=== PATIENT | male | born 1940 | race Caucasian/White ===

== ENCOUNTER 2016-10-04 17:49 | Emergency (ER) | payer MEDICARE, BC ==
--- NOTE | ~2016-10-04 | CR2 ---
[facility]. [facility] A Service of [facility] & [facility] RADIOLOGY TEXT RESULTS PATIENT: DORIS SIMONS LOCATION: SED : 40 UNIT #: [id number] AGE: [address]: Frank Rubin MD SEX: M ORDER DR: [id number] [place] [id number] MR#: [id number] Acc #: [id number] NAME: DORIS SIMONS : 1940 SEX: M STUDY DATE/TIME: 10/04/2016 17:26 UNIT: SED ROOM: STUDY DESCRIPTION: CR Abdomen Acute Series Attending Physician: Frank Rubin M.D. Ordering Physician: Frank Rubin M.D. Primary Care Physician: Oswald Suarez M.D. MEDICAL IMAGING REPORT This report is preliminary unless electronic signature is present. EXAM Acute abdominal series INDICATION Abdominal pain for the past 2 weeks. Generalized abdominal pain. PROCEDURE Frontal view of the chest, supine and upright views of the abdomen. COMPARISON None. FINDINGS Upper limits of normal heart size. No dense consolidation. No free air. Large colonic stool burden. Nonobstructed bowel gas pattern. IMPRESSION 1. Large colonic stool burden. 2. Nonobstructive pattern. Dictated by... Sunny Hawthorne M.D. THIS IS AN ELECTRONICALLY VERIFIED REPORT Sunny Hawthorne M.D. at 10/07/2016 7:22 AM MENDOZA/[email or web address] TD: 10/05/2016 09:37 JOB #: [id number] MEDICAL IMAGING REPORT
[~2016-10-04 17:49] MED LIST: AMLODIPINE BESY10 MG PO; ARTHRITIS PILL; BP PILL; CERTAGEN PO; CHOLESTEROL MED; CVS SPECTRAVIT PO; DICLOFENAC PO; DIOVAN PO; DIOVAN160 MG DOB; DIOVAN160 MG PO; EPIPEN0.3 MG/0.1 IM; FISH OIL 1,0001 CAP PO; FISH OIL500 M1 PO; KEFLEX500 MG PO; LEVAQUIN; LORTAB 10-5001 EACH PO; MEDROL4 MG/DOSE- PO; MONODOX100 MG PO; MULTI VITAMIN1 EACH PO; NEURONTIN; NEURONTIN100 MG PO; NORCO1 TAB 10/3; NORVASC PO; PROAIR HFA8.5 GM INH; SIMVASTATIN20 MG PO; TRAMADOL HCL50 M2 PO; VITA EYES PO; VITAMIN D1000 UNIT PO; ZOCOR20 MG PO; ZOFRAN; ZOFRAN ODT4 MG PO; [UNRECOGNIZED DRUG - OTHER] PO
[2016-10-04 18:33] LABS: URINE SOURCE CLEAN CATCH
[2016-10-04 18:37] LABS: URINE APPEARANCE CLEAR; URINE BILIRUBIN NEG (NEG); URINE BLOOD NEG (NEG); URINE COLOR YELLOW; URINE GLUCOSE NEG (NORM); URINE KETONE NEG (NEG); URINE LEUKOCYTE ESTERASE NEG (NEG); URINE NITRATE NEG (NEG); URINE PROTEIN NEG (NEG); URINE SPECIFIC GRAVITY <=1.005 (1.003-1.035); URINE UROBILINOGEN 0.2 MG/DL (NORM)
[2016-10-04 18:39] LABS: MICRO INDICATED? NO
== END 2016-10-04 19:25 | disposition home or self-care (01) ==
LOC: SED 17:49
PROVIDERS: Emergency Medicine
DX: K59.00 Constipation, unspecified (principal); R10.9 Unspecified abdominal pain; Z88.8 Allergy status to other drugs, medicaments and biological substances; Z79.899 Other long term (current) drug therapy
CPT/HCPCS: 74022; 81003; 99284

== ENCOUNTER → 2016-10-16 | Outpatient (CLI) | payer MEDICARE, BC ==
[2016-10-16 09:39] LABS: ALBUMIN SERUM 4.3 g/dL (3.5-5.0); BILIRUBIN,TOTAL 0.3 mg/dL (0.2-2.0); BUN/CREATININE RATIO 23.75; CALCIUM SERUM 8.9 mg/dL (8.4-10.2); CREATININE SERUM 0.8 mg/dL (0.6-1.4); GLOM FILT RATE Estimated 86.8 mL/min (>60); POTASSIUM 4.1 mmol/L (3.5-5.1); PROTEIN TOTAL SERUM 7.5 g/dL (6.0-8.3)
[2016-10-16 10:03] LABS: HEMATOCRIT 39.8 % (38.0-50.0); HEMOGLOBIN 13.4 gm/dL (13.0-16.0); MEAN CELL VOLUME 91.8 FL (83-96); MEAN CORPUSCULAR HGB CONC 33.8 g/dL (30-36); MEAN PLATELET VOLUME 7.5 FL (6.5-11.5); RED BLOOD COUNT 4.33 X10e (3.90-5.60); RED CELL DISTRIBUTION WIDTH 13.4 % (11.0-15.5); WHITE BLOOD COUNT 4.9 X10e3 (4.0-10.5)
[2016-10-16 11:20] LABS: PROSTATE SPECIFIC AG SCR 0.22 ng/ml (0.0-4.0)
== END | disposition home or self-care (01) ==
LOC: SLAB 08:08
PROVIDERS: Internal Medicine
DX: I10 Essential (primary) hypertension (principal); E78.5 Hyperlipidemia, unspecified
CPT/HCPCS: 36415; 80053; 80061; 82378; 84443; 85027; G0103